=== PATIENT | female | born 1950 | race Caucasian/White ===

== ENCOUNTER → 2017-11-13 | Outpatient (CLI) | payer OTHER ==
[~2017-11-13] VITALS: Ht 172.7 cm; Wt 72.6 kg
[~2017-11-13] MED LIST: ADVAIR 250/501 DISK IH; ASCORBIC ACID500 M3 PO; CALCIUM COMPLETE PO; MOTRIN IB200 MG PO; MULTIPLE VITAM1 EAC1 PO; STOOL SOFTENER100 M1 PO; STRESS B-COMPL1 EACH PO; TYLENOL EXTRA500 MG PO; VITAMIN D31000 UNI2 PO; ZYRTEC10 M3 PO
== END | disposition home or self-care (01) ==
LOC: AMB 12:00
PROC: 0DJD8ZZ Inspection of Lower Intestinal Tract, Via Natural or Artificial Opening Endoscopic (ICD-10-PCS; principal; 2017-11-13)
DX: Z12.11 Encounter for screening for malignant neoplasm of colon (principal)